=== PATIENT | female | born 1975 | race Native Hawaiian/Other Pacific Islander ===

== ENCOUNTER → 2016-11-18 | Outpatient (CLI) | payer OTHER ==
[2016-11-18 08:25] LABS: CH 31.4; CHCM 32.1; HCT 41.1 % (34.0-46.0); HDW 2.58; HGB 13.3 gm/dL (11.4-16.0); MCH 31.7 pg (25.0-35.0); MCHC 32.3 g/dL (31.0-37.0); MCV 98.3 fL (80.0-100.0); Mean Platelet Volume 6.7; RBC 4.18 m/uL (3.80-5.40); RDW 13.2 % (11.5-15.5); WBC 8.6 k/uL (3.8-10.6)
[2016-11-18 08:48] LABS: ALT 22 U/L (9-52); AST 48 U/L (14-36); Alkaline Phosphatase 72 U/L (38-126); Anion Gap 12 mmol/L; Blood Urea Nitrogen 17 mg/dL (7-17); Calcium 9.5 mg/dL (8.4-10.2); Carbon Dioxide 27 mmol/L (22-30); Chloride 104 mmol/L (98-107); Cholesterol 216 mg/dL (<200); Glucose 87 mg/dL (74-99); HDL Cholesterol 92 mg/dL (40-60); Non-African American GFR(MDRD) >60 (>60 ml/min/1.73 sqM); Potassium 4.1 mmol/L (3.5-5.1); Sodium 143 mmol/L (137-145); Total Bilirubin 0.5 mg/dL (0.2-1.3); Total Protein 7.7 g/dL (6.3-8.2); Triglycerides 168 mg/dL (<150)
== END | disposition home or self-care (01) ==
LOC: LABWHC1 08:05
PROVIDERS: ATTEND Internal Medicine
DX: I11.9 Hypertensive heart disease without heart failure (principal); E78.2 Mixed hyperlipidemia
CPT/HCPCS: 36415; 80053; 80061; 85027

== ENCOUNTER → 2017-02-11 | Outpatient (CLI) | payer OTHER ==
[2017-02-11 11:27] LABS: CH 31.7; CHCM 32.6; HCT 42.8 % (34.0-46.0); HDW 2.52; HGB 13.8 gm/dL (11.4-16.0); MCH 31.5 pg (25.0-35.0); MCHC 32.3 g/dL (31.0-37.0); MCV 97.6 fL (80.0-100.0); Mean Platelet Volume 6.7; RBC 4.38 m/uL (3.80-5.40); RDW 13.7 % (11.5-15.5); WBC 10.8 k/uL (3.8-10.6)
[2017-02-11 11:45] LABS: ALT 30 U/L (9-52); AST 40 U/L (14-36); Alkaline Phosphatase 67 U/L (38-126); Anion Gap 13 mmol/L; Blood Urea Nitrogen 15 mg/dL (7-17); Calcium 9.5 mg/dL (8.4-10.2); Carbon Dioxide 21 mmol/L (22-30); Chloride 104 mmol/L (98-107); Cholesterol 263 mg/dL (<200); Glucose 112 mg/dL (74-99); HDL Cholesterol 103 mg/dL (40-60); Non-African American GFR(MDRD) >60 (>60 ml/min/1.73 sqM); Sodium 138 mmol/L (137-145); Total Bilirubin 0.6 mg/dL (0.2-1.3); Total Protein 8.1 g/dL (6.3-8.2); Triglycerides 239 mg/dL (<150)
== END | disposition home or self-care (01) ==
LOC: LABWHC1 11:08
PROVIDERS: ATTEND Internal Medicine
DX: I11.9 Hypertensive heart disease without heart failure (principal); E78.2 Mixed hyperlipidemia; K21.0 Gastro-esophageal reflux disease with esophagitis
CPT/HCPCS: 36415; 80053; 80061; 85027

== ENCOUNTER → 2017-03-11 | Outpatient (CLI) | payer OTHER ==
[2017-03-11 09:26] LABS: Hemoglobin A1C 5.1 % (4.2-6.1)
== END | disposition home or self-care (01) ==
LOC: LABWHC1 08:30
PROVIDERS: ATTEND Internal Medicine
DX: Z00.00 Encounter for general adult medical examination without abnormal findings (principal); K21.0 Gastro-esophageal reflux disease with esophagitis; R73.9 Hyperglycemia, unspecified
CPT/HCPCS: 36415; 82947; 83036

== ENCOUNTER → 2017-10-02 | Outpatient (CLI) | payer OTHER ==
--- NOTE | 2017-10-05 11:56 | MM ---
Reason for exam: screening (asymptomatic). Last mammogram was performed 1 year and 1 month ago. Physical Findings: A clinical breast exam by your physician is recommended on an annual basis and results should be correlated with mammographic findings. MG Screening Mammo w CAD Bilateral CC and MLO view(s) were taken. Prior study comparison: August 29, 2016, bilateral MG screening mammo w CAD. March 07, 2014, bilateral MG screening mammo w CAD. There are scattered fibroglandular densities. Stable benign calcifications. There is no discrete abnormality. No significant changes when compared with prior studies. ASSESSMENT: Benign, BI-RAD 2 RECOMMENDATION: Routine screening mammogram of both breasts in 1 year.
== END | disposition home or self-care (01) ==
LOC: RADMAMWWP 06:47
PROVIDERS: ATTEND Internal Medicine
DX: Z12.31 Encounter for screening mammogram for malignant neoplasm of breast (principal)
CPT/HCPCS: 77067

== ENCOUNTER → 2017-11-24 | Outpatient (CLI) | payer OTHER ==
--- NOTE | 2017-11-25 09:35 | FL ---
EXAMINATION TYPE: FL UGI air w esophagus DATE OF EXAM: 11/24/2017 COMPARISON: NONE HISTORY: Epigastric pain, gastroesophageal reflux disease TECHNIQUE: A double contrast UGI study is performed. FINDINGS: 16 obtained images, 1 minute 51 seconds fluoroscopy time The esophagus shows normal motility and emptying into the stomach. No evidence of hiatal hernia or stricture noted. The stomach shows normal distensibility, peristalsis, and mucosal folds. No evidence of any mass or ulcer disease. No significant gastroesophageal reflux was seen during real time performance of this study. The duodenal bulb, sweep, and proximal small bowel loops are unremarkable. IMPRESSION: Normal upper GI study.
== END | disposition home or self-care (01) ==
LOC: RADFLMAIN 08:29
PROVIDERS: ATTEND Internal Medicine
DX: K21.9 Gastro-esophageal reflux disease without esophagitis (principal); R10.13 Epigastric pain; R10.84 Generalized abdominal pain
CPT/HCPCS: 74246

== ENCOUNTER → 2018-02-23 | Outpatient (CLI) | payer OTHER | END | disposition home or self-care (01) | LOC: WWCWWP 15:10 | PROVIDERS: ATTEND Obstetrics & Gynecology | DX: Z53.9 Procedure and treatment not carried out, unspecified reason (principal) ==

== ENCOUNTER → 2018-03-30 | Outpatient (CLI) | payer OTHER ==
[2018-03-30 07:25] LABS: HCT 38.2 % (34.0-46.0); MCH 31.5 pg (25.0-35.0); MCV 92.6 fL (80.0-100.0); Mean Platelet Volume 6.4; Platelet Count 357 k/uL (150-450); RBC 4.12 m/uL (3.80-5.40); WBC 12.7 k/uL (3.8-10.6)
[2018-03-30 07:46] LABS: ALT 38 U/L (9-52); AST 39 U/L (14-36); Albumin 4.2 g/dL (3.5-5.0); Alkaline Phosphatase 76 U/L (38-126); Anion Gap 13 mmol/L; Blood Urea Nitrogen 15 mg/dL (7-17); Calcium 9.6 mg/dL (8.4-10.2); Carbon Dioxide 27 mmol/L (22-30); Chloride 98 mmol/L (98-107); Cholesterol 240 mg/dL (<200); Glucose 104 mg/dL (74-99); HDL Cholesterol 80 mg/dL (40-60); LDL Cholesterol,Calculated 124 mg/dL (0-99); Potassium 3.7 mmol/L (3.5-5.1); Sodium 138 mmol/L (137-145); Total Bilirubin 0.5 mg/dL (0.2-1.3); Total Protein 7.5 g/dL (6.3-8.2); Triglycerides 180 mg/dL (<150)
[2018-03-30 07:54] LABS: T4, Free (Free Thyroxine) 1.03 ng/dL (0.78-2.19)
== END | disposition home or self-care (01) ==
LOC: LABWHC1 06:54
PROVIDERS: ATTEND Internal Medicine
DX: Z00.00 Encounter for general adult medical examination without abnormal findings (principal); I11.9 Hypertensive heart disease without heart failure; E78.2 Mixed hyperlipidemia; K21.0 Gastro-esophageal reflux disease with esophagitis
CPT/HCPCS: 36415; 80053; 80061; 82272; 84439; 84443; 85027

== ENCOUNTER → 2018-04-22 | Outpatient (CLI) | payer OTHER ==
--- NOTE | 2018-04-22 10:28 | MR ---
EXAMINATION TYPE: MR femur/thigh RT wo/w con DATE OF EXAM: 04/22/2018 COMPARISON: MRI of the right knee dated 07/14/2014 and x-ray of the bilateral knees dated 05/10/2014. HISTORY: Osteochondroma of right femur CONTRAST: Standard multiplanar, multisequence MRI departmental protocol utilizing 10 mL intravenous Gadavist ga dolinium contrast. FINDINGS: The known osteochondroma of the distal right anterior femur is demonstrated as a protuberan t osseous irregularity at the site of the palpable abnormality impressing upon the quadriceps tendon and vastus intermedius as well as the vastus medius. This is contiguous with the diaphysis and withou t interval cortical thickening or periosteal reaction. No bone marrow edema is seen. The previously s een cartilaginous cap is better appreciated on the prior exam of 2013 given [id number]. However th is measures approximately 2.2 mm and is stable from the prior. No new suspicious osseous lesions are seen. There is enhancement of the cartilaginous cap without any abnormal enhancement of the surroundi ng bone marrow. A small suprapatellar joint effusion, minimal nonspecific prepatellar soft tissue subcutaneous edema, and a small popliteal cysts are incidentally identified. The previously seen tear of the posterior h orn of the medial meniscus an chondromalacia are better appreciated on the prior knee MR given field- of-view. IMPRESSION: No significant change in the right distal femoral anterior osteochondroma with an approximately 2.2 m m cartilaginous cap. No significant interval growth or increase in size of the cartilaginous cap. No new bone marrow edema or abnormal cortical enhancement. No new periosteal reaction. Again this places mass effect upon the quadriceps tendon and surrounding musculature. Continued surveillance could be performed for assessment of interval growth of the cartilaginous cap/malignant transformation.
== END | disposition home or self-care (01) ==
LOC: RADMRIMAIN 06:51
PROVIDERS: ATTEND Orthopaedic Surgery
DX: D16.21 Benign neoplasm of long bones of right lower limb (principal); M67.88 Other specified disorders of synovium and tendon, other site
CPT/HCPCS: 73720; A9581

== ENCOUNTER → 2018-10-29 | Outpatient (CLI) | payer OTHER ==
--- NOTE | 2018-11-01 09:51 | MM ---
Reason for exam: screening (asymptomatic). Last mammogram was performed 1 year and 1 month ago. Physical Findings: A clinical breast exam by your physician is recommended on an annual basis and results should be correlated with mammographic findings. MG Screening Mammo w CAD Bilateral CC and MLO view(s) were taken. Prior study comparison: October 02, 2017, bilateral MG screening mammo w CAD. August 29, 2016, bilateral MG screening mammo w CAD. There are scattered fibroglandular densities. Stable benign calcifications. There is no discrete abnormality. No significant changes when compared with prior studies. ASSESSMENT: Benign, BI-RAD 2 RECOMMENDATION: Routine screening mammogram of both breasts in 1 year.
== END | disposition home or self-care (01) ==
LOC: RADMAMWWP 08:39
PROVIDERS: ATTEND Internal Medicine
DX: Z12.31 Encounter for screening mammogram for malignant neoplasm of breast (principal)
CPT/HCPCS: 77067

== ENCOUNTER → 2018-12-22 | Outpatient (CLI) | payer OTHER ==
[2018-12-22 11:41] LABS: HCT 42.4 % (34.0-46.0); HGB 13.4 gm/dL (11.4-16.0); MCH 28.1 pg (25.0-35.0); MCHC 31.5 g/dL (31.0-37.0); MCV 89.2 fL (80.0-100.0); Mean Platelet Volume 7.2; Platelet Count 378 k/uL (150-450); RBC 4.76 m/uL (3.80-5.40); WBC 12.2 k/uL (3.8-10.6)
[2018-12-22 19:00] LABS: Albumin 4.2 g/dL (3.80-4.90); Albumin/Globulin Ratio 1.5 (1.60-3.17); Anion Gap 9.6 mmol/L (4.00-12.00); Calcium 9.8 mg/dL (8.7-10.3); Carbon Dioxide 25.4 mmol/L (21.6-31.8); Globulin 2.8 g/dL (1.6-3.3); Potassium 4.1 mmol/L (3.5-5.5); Total Bilirubin 0.3 mg/dL (0.2-1.2)
[2018-12-22 20:24] LABS: Hemoglobin A1C 5.5 % (4.0-6.0)
== END ==
LOC: LABWHC1 10:09
PROVIDERS: ATTEND Internal Medicine
DX: I11.9 Hypertensive heart disease without heart failure (principal); E78.2 Mixed hyperlipidemia; R73.9 Hyperglycemia, unspecified
CPT/HCPCS: 36415; 80053; 80061; 83036; 85027

== ENCOUNTER → 2019-01-05 | Outpatient (CLI) | payer OTHER ==
--- NOTE | 2019-01-05 16:51 | US ---
EXAMINATION TYPE: US abdomen complete DATE OF EXAM: 01/05/2019 COMPARISON: US CLINICAL HISTORY: R94.5 Abnormal liver function test. Elevated LFT's EXAM MEASUREMENTS: Liver Length: 18.6 cm CBD: 0.7 cm Spleen: 9.5 cm Right Kidney: 10.1 x 4.6 x 5.1 cm Left Kidney: 9.9 x 5.6 x 5.8 cm Obese pt, difficult to scan Pancreas: Body wnl, head and tail obscured by overlying bowel gas Liver: Enlarged, difficult to penetrate Gallbladder: wnl Evidence for sonographic Valdez's sign: None CBD: wnl Spleen: wnl Right Kidney: wnl, lower pole gassed out Left Kidney: Lobulated contour, lower pole gassed out Upper IVC: wnl Abd Aorta: wnl IMPRESSION: 1. No acute ultrasound abnormality abdomen ultrasound. 2. Hepatomegaly
[2019-01-05 18:14] LABS: Hepatitis A Antibody IgM Non-Reactive (Non-Reactive); Hepatitis B Core IgM Non-Reactive (Non-Reactive)
== END ==
LOC: RADUSWWP 08:39
PROVIDERS: ATTEND Internal Medicine
DX: R16.0 Hepatomegaly, not elsewhere classified (principal); R94.5 Abnormal results of liver function studies
CPT/HCPCS: 36415; 76700; 80074

== ENCOUNTER 2019-07-01 17:16 | Emergency (ER) | payer OTHER ==
[2019-07-01] MEDS ORDERED: KETOROLAC 30 MG/ML 1 ML VIAL IVP STA (17:40)
[2019-07-01] MEDS ORDERED: MORPHINE SULFATE 4 MG/ML SYRINGE IVP STA (17:56)
[2019-07-01] MEDS ORDERED: DIPH,PERTUS(ACELL)TETVAC-LF 0.5 ML VIAL IM ONE (18:43)
[2019-07-01] MEDS ORDERED: ACET/COD 300 MG/30 MG STARTER PACK 6 TAB BTL PO STA (20:41)
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
[2019-07-01 20:57] VITALS: BP 145/70; PULSE 98; RESP 18; TEMP 98
== END 2019-07-01 21:03 | disposition home or self-care (01) ==
LOC: EC 17:16
DX: T25.222A Burn of second degree of left foot, initial encounter (principal); T31.50 Burns involving 50-59% of body surface with 0% to 9% third degree burns; Z23 Encounter for immunization; I10 Essential (primary) hypertension; E78.5 Hyperlipidemia, unspecified; F41.9 Anxiety disorder, unspecified; F17.200 Nicotine dependence, unspecified, uncomplicated; Z79.899 Other long term (current) drug therapy; X10.2XXA Contact with fats and cooking oils, initial encounter; Y93.G3 Activity, cooking and baking; Y92.000 Kitchen of unspecified non-institutional (private) residence as the place of occurrence of the external cause
CPT/HCPCS: 90715; 99283; 16030; 96374; 96375; 90471; J2270; J1885

== ENCOUNTER → 2022-01-30 | Outpatient (CLI) | payer OTHER ==
--- NOTE | 2022-01-31 14:42 | MM ---
Reason for exam: screening (asymptomatic). Last mammogram was performed 3 years and 3 months ago. History: Patient is postmenopausal. Physical Findings: A clinical breast exam by your physician is recommended on an annual basis and results should be correlated with mammographic findings. MG Screening Mammo w CAD Bilateral CC, MLO, and XCCL view(s) were taken. Prior study comparison: October 29, 2018, bilateral MG screening mammo w CAD. October 02, 2017, bilateral MG screening mammo w CAD. Benign appearing bilateral calcifications. No significant changes when compared with prior studies. ASSESSMENT: Benign, BI-RAD 2 RECOMMENDATION: Routine screening mammogram of both breasts in 1 year.
== END | disposition home or self-care (01) ==
LOC: RADMAMWWP 10:47
PROVIDERS: ATTEND Family Medicine
DX: Z12.31 Encounter for screening mammogram for malignant neoplasm of breast (principal)
CPT/HCPCS: 77067

== ENCOUNTER → 2023-02-20 | Outpatient (CLI) | payer OTHER ==
--- NOTE | 2023-02-23 10:26 | MM ---
Reason for Exam: Screening (asymptomatic). Last mammogram was performed 1 year(s) and 1 month(s) ago. Patient History: Menarche at age 13. First Full-Term at age 16. Postmenopausal. Risk Values: Miranda 5 year model risk: 0.4%. NCI Lifetime model risk: 4.3%. Prior Study Comparison: 03/07/2014 Bilateral Screening Mammogram, [facility]. 08/29/2016 Bilateral Screening Mammogram, [facility]. 10/02/2017 Bilateral Screening Mammogram, [facility]. 10/29/2018 Bilateral Screening Mammogram, [facility]. 01/30/2022 Bilateral Screening Mammogram, [facility]. Tissue Density: The breast tissue is almost entirely fat. Findings: Analyzed By CAD. A few tiny scattered and grouped benign-appearing tiny round calcifications are redemonstrated bilaterally. Benign-appearing bilateral axillary lymph nodes are redemonstrated. There is no suspicious group of microcalcifications or new suspicious mass in either breast. Overall Assessment: Benign, BI-RAD 2 Management: Screening Mammogram of both breasts in 1 year. . Patient should continue monthly self-breast exams. A clinical breast exam by your physician is recommended on an annual basis. This exam should not preclude additional follow-up of suspicious palpable abnormalities. Note on Miranda scores and lifetime risk: 1. A Miranda score greater than 3% is considered moderate risk. If this is the case, consider specialist referral to assess eligibility for a risk reducing agent. 2. If overall lifetime risk for the development of breast cancer is 20% or higher, the patient may qualify for future screening with alternating mammogram and breast MRI. Electronically signed and approved by: Morgan Cruz M.D.
== END | disposition home or self-care (01) ==
LOC: RADMAMWWP 10:01
PROVIDERS: ATTEND Family Medicine
DX: Z12.31 Encounter for screening mammogram for malignant neoplasm of breast (principal); Z78.0 Asymptomatic menopausal state
CPT/HCPCS: 77067

== ENCOUNTER → 2024-06-01 | Outpatient (CLI) | payer OTHER ==
--- NOTE | 2024-06-01 09:53 | US ---
EXAMINATION TYPE: US abdomen complete DATE OF EXAM: 06/01/2024 COMPARISON: Abdominal ultrasound 01/05/2019 CLINICAL INDICATION: Female, 49 years old with history of N18.1 CKD STAGE 3 A, R79.89 ELEVATED LFT'S; abn renal and liver labs, no symptoms, cholecystectomy TECHNIQUE: Multiple sonographic images of the abdomen are obtained. FINDINGS: EXAM MEASUREMENTS: Liver Length: 19.9 cm Gallbladder Wall: Surgically absent CBD: 0.8 cm Spleen: 13.6 cm Right Kidney: 9.0 x 4.4 x 4.5 cm Left Kidney: 9.7 x 3.7 x 5.3 cm [employer]CHNICIAN NOTES: habitus and bowel gas limits exam Pancreas: wnl Liver: difficult to penetrate and enlarged Gallbladder: Surgically absent CBD: wnl Spleen: Top end of normal for size Right Kidney: wnl Left Kidney: wnl Upper IVC: wnl Abd Aorta: limited views due to gas The liver is diffusely hyperechoic and difficult to penetrate. The liver is enlarged. The visualized intrahepatic portion of the IVC and proximal abdominal aorta are within normal limits. Common bile duct is within normal limits post cholecystectomy. The visualized portions of the pancreas are homog enous. The spleen is at the top end of normal for size. Kidneys are symmetric and free of hydroneph rosis. Cortical medullary differentiation is maintained bilaterally. No renal lesions are seen. IMPRESSION: 1. No hydronephrosis. 2. Hepatomegaly with diffuse fatty infiltration. 3. Postcholecystectomy changes.
== END | disposition home or self-care (01) ==
LOC: RADUSWWP 08:19
PROVIDERS: ATTEND Family Medicine
DX: N18.1 Chronic kidney disease, stage 1 (principal); R79.89 Other specified abnormal findings of blood chemistry; R16.0 Hepatomegaly, not elsewhere classified; K76.0 Fatty (change of) liver, not elsewhere classified
CPT/HCPCS: 76700

== ENCOUNTER → 2025-03-13 | Outpatient (CLI) | payer OTHER ==
[2025-03-13 15:36] LABS: % Iron Saturation 18.39 (12.00-45.00); ALT 73 U/L (8-44); AST 83 U/L (13-35); Albumin 3.8 g/dL (3.8-4.9); Albumin/Globulin Ratio 1.19 Ratio (1.60-3.17); Alkaline Phosphatase 109 U/L (41-126); BUN/Creat Ratio 19.78 Ratio (12.00-20.00); Blood Urea Nitrogen 17.8 mg/dL (9.0-27.0); Calcium 9.2 mg/dL (8.7-10.3); Carbon Dioxide 22.7 mmol/L (21.6-31.8); Chloride 104 mmol/L (96-109); Globulin 3.2 g/dL (1.6-3.3); Glucose 118 mg/dL (70-110); Iron 71 UG/DL (50-170); Potassium 4.2 mmol/L (3.5-5.5); Sodium 138 mmol/L (135-145); Total Bilirubin 0.4 mg/dL (0.3-1.2); Total Iron Binding Capacity 386 UG/DL (228-460)
[2025-03-13 15:42] LABS: Protein, Total 7.1 g/dL (6.2-8.2)
[2025-03-14 11:10] LABS: Smooth Muscle Antibody 4 UNITS (<20)
[2025-03-15 11:43] LABS: Alpha 1 Anti-Trypsin 142 mg/dL (90 - 200)
== END | disposition home or self-care (01) ==
LOC: LABWHC1 09:51
PROVIDERS: ATTEND Internal Medicine Gastroenterology
DX: K76.0 Fatty (change of) liver, not elsewhere classified (principal); R94.5 Abnormal results of liver function studies
CPT/HCPCS: 36415; 80053; 81596; 82103; 82104; 82390; 82728; 83516; 83540; 83550; 84165; 86038

== ENCOUNTER → 2025-04-05 | Outpatient (CLI) | payer OTHER ==
--- NOTE | 2025-04-05 13:37 | MM ---
Reason for Exam: Screening (asymptomatic). Last mammogram was performed 2 year(s) and 1 month(s) ago. Patient History: Menarche at age 13. First Full-Term at age 16. Postmenopausal. Risk Values: Miranda 5 year model risk: 0.5%. NCI Lifetime model risk: 4.1%. Prior Study Comparison: 10/29/2018 Bilateral Screening Mammogram, [facility]. 01/30/2022 Bilateral Screening Mammogram, [facility]. 02/20/2023 Bilateral MG screening mammo w CAD, [facility]. Tissue Density: There are scattered areas of fibroglandular density. Findings: Analyzed By CAD. There is no suspicious group of microcalcifications or new suspicious mass in either breast. Overall Assessment: Negative, BI-RAD 1 Management: Screening Mammogram of both breasts in 1 year. . Patient should continue monthly self-breast exams. A clinical breast exam by your physician is recommended on an annual basis. This exam should not preclude additional follow-up of suspicious palpable abnormalities. Note on Miranda scores and lifetime risk: 1. A Miranda score greater than 3% is considered moderate risk. If this is the case, consider specialist referral to assess eligibility for a risk reducing agent. 2. If overall lifetime risk for the development of breast cancer is 20% or higher, the patient may qualify for future screening with alternating mammogram and breast MRI. [facility], , 04/05/2025 1:34 PM. Electronically signed and approved by: Sukumar Mccray M.D. Radiolog[facility]
== END | disposition home or self-care (01) ==
LOC: RADMAMWWP 13:13
PROVIDERS: ATTEND Family Medicine
DX: Z12.31 Encounter for screening mammogram for malignant neoplasm of breast (principal); R92.323 Mammographic fibroglandular density, bilateral breasts; Z78.0 Asymptomatic menopausal state
CPT/HCPCS: 77067